=== PATIENT | male | born 1980 ===

== ENCOUNTER → 2019-10-02 | Outpatient (CLI) | payer OTHER | LOC: MHCPAIN 14:59 | DX: M47.817 Spondylosis without myelopathy or radiculopathy, lumbosacral region (principal); M54.5 Low back pain; M53.3 Sacrococcygeal disorders, not elsewhere classified; G89.29 Other chronic pain | CPT/HCPCS: G0463 ==

== ENCOUNTER → 2019-10-18 | Outpatient (CLI) | payer OTHER | LOC: MHCPAIN 07:43 | DX: M54.5 Low back pain (principal); M53.3 Sacrococcygeal disorders, not elsewhere classified; G89.29 Other chronic pain; M54.16 Radiculopathy, lumbar region | CPT/HCPCS: J1100; Q9967 ==

== ENCOUNTER → 2019-11-07 | Outpatient (CLI) | payer OTHER | LOC: MHCPAIN 13:50 | DX: M47.817 Spondylosis without myelopathy or radiculopathy, lumbosacral region (principal); M54.5 Low back pain; M53.3 Sacrococcygeal disorders, not elsewhere classified; G89.29 Other chronic pain; M54.16 Radiculopathy, lumbar region | CPT/HCPCS: G0463 ==

== ENCOUNTER → 2019-12-06 | Outpatient (CLI) | payer OTHER | LOC: MHCPAIN 13:35 | DX: M47.817 Spondylosis without myelopathy or radiculopathy, lumbosacral region (principal); M54.5 Low back pain | CPT/HCPCS: J1100; Q9967 ==

== ENCOUNTER → 2019-12-18 | Outpatient (CLI) | payer OTHER | LOC: MHCPAIN 12:23 | DX: M47.817 Spondylosis without myelopathy or radiculopathy, lumbosacral region (principal); M54.5 Low back pain; G89.29 Other chronic pain | CPT/HCPCS: G0463 ==

== ENCOUNTER → 2019-12-27 | Outpatient (CLI) | payer OTHER | LOC: MHCPAIN 14:01 | DX: M47.817 Spondylosis without myelopathy or radiculopathy, lumbosacral region (principal); M54.5 Low back pain; M53.3 Sacrococcygeal disorders, not elsewhere classified | CPT/HCPCS: J1100; Q9967 ==

== ENCOUNTER → 2020-01-16 | Outpatient (CLI) | payer OTHER | LOC: MHCPAIN 14:42 | DX: M47.817 Spondylosis without myelopathy or radiculopathy, lumbosacral region (principal); M54.5 Low back pain; M53.3 Sacrococcygeal disorders, not elsewhere classified; G89.29 Other chronic pain | CPT/HCPCS: G0463 ==

== ENCOUNTER → 2020-03-24 | Outpatient (CLI) | payer OTHER | LOC: MHCPAIN 08:57 | DX: M47.817 Spondylosis without myelopathy or radiculopathy, lumbosacral region (principal); M53.3 Sacrococcygeal disorders, not elsewhere classified; G89.29 Other chronic pain | CPT/HCPCS: G0463 ==

== ENCOUNTER → 2020-03-27 | Outpatient (CLI) | payer OTHER | LOC: MHCPAIN 08:01 | DX: M47.817 Spondylosis without myelopathy or radiculopathy, lumbosacral region (principal); M54.5 Low back pain ==

== ENCOUNTER → 2020-04-02 | Outpatient (CLI) | payer OTHER | LOC: MHCPAIN 13:16 | DX: M47.817 Spondylosis without myelopathy or radiculopathy, lumbosacral region (principal); M54.5 Low back pain; G89.29 Other chronic pain; M53.3 Sacrococcygeal disorders, not elsewhere classified | CPT/HCPCS: G0463 ==

== ENCOUNTER → 2020-04-03 | Outpatient (CLI) | payer OTHER | LOC: MHCPAIN 15:25 | DX: M47.817 Spondylosis without myelopathy or radiculopathy, lumbosacral region (principal); M54.5 Low back pain ==

== ENCOUNTER → 2020-04-24 | Outpatient (CLI) | payer OTHER | LOC: MHCPAIN 08:18 | DX: M47.817 Spondylosis without myelopathy or radiculopathy, lumbosacral region (principal); M54.5 Low back pain; M53.3 Sacrococcygeal disorders, not elsewhere classified; G89.29 Other chronic pain | CPT/HCPCS: G0463; J2250; J3010 ==

== ENCOUNTER → 2020-06-03 | Outpatient (CLI) | payer OTHER | LOC: MHCPAIN 14:46 | DX: M47.816 Spondylosis without myelopathy or radiculopathy, lumbar region (principal); M54.5 Low back pain; M53.3 Sacrococcygeal disorders, not elsewhere classified; G89.29 Other chronic pain | CPT/HCPCS: G0463 ==